=== PATIENT | male | born 1955 | race Caucasian/White ===

== ENCOUNTER 2017-07-06 03:05 | Inpatient (IN) ==
[2017-07-06] MEDS ORDERED: NORMAL SALINE 10 ML SYRINGE FLUSH IVP PRN ×4 (03:14→06:55)
[2017-07-06] MEDS ORDERED: Lactated Ringers 1,000 ML PRIMARY IV SCH ×2 (03:15→05:45)
[2017-07-06] MEDS ORDERED: HYDROmorphone 2 MG/1 ML IVP ONE (03:17)
[2017-07-06 03:21] LABS: BASOPHILS # (AUTO) 0.01 10*3/UL; BASOPHILS % (AUTO) 0.1 % (0-1); BLOOD UREA NITROGEN 9 mg/dL (7-22); EOSINOPHILS # (AUTO) 0 10*3/UL; EOSINOPHILS % (AUTO) 0 % (0-8); Hematocrit [HCT] 40.3 % (42.0-52.0); Hemoglobin [HGB] 13.3 g/dL (14.0-18.0); LYMPHOCYTES # (AUTO) 0.56 10*3/uL; MEAN CORPUSCULAR HEMOGLOBIN 28.3 PG (27-31); MEAN CORPUSCULAR VOLUME 85.7 FL (80-90); MEAN PLATELET VOLUME 9.7 FL (7.4-12.2); MONOCYTES # (AUTO) 0.89 10*3/UL (0.3-0.8); MONOCYTES % (AUTO) 8.4 % (5-15); NEUTROPHILS # (AUTO) 9.06 10*3/UL; NEUTROPHILS % (AUTO) 85.9 % (50-80); PLATELET MORPHOLOGY COMMENT NORMAL MORPHOLOGY (NORM); RBC MORPHOLOGY COMMENT NORMAL MORPHOLOGY (NORM); WBC MORPHOLOGY COMMENT NORMAL MORPHOLOGY (NORM)
--- NOTE | 2017-07-06 03:22 | PDOC ---
HPI - History of Present Illness Date of Service: 07/06/17 Time of Service: 03:00 Chief Complaint: Abdominal pain History of Present Illness: This is 61-year-old male who comes in with a one-day history of abdominal pain. He states he woke up roughly around 6 AM on 07/05/2017 with abdominal pain. Because of the pain the patient went to the emergency department at [facility] at [facility] [place]. Patient rates pain as 10 out of 10. He's never had pain like this before. Patient because of the shoulder problem has been taken hydrocodone/Tylenol plus ibuprofen. He is on antibiotics for tooth infection. He states and sees had gastric bypass surgery has now obstruction is been having a lot of problems with his his teeth. Patient's white count at 1758 on 07/05/2017 was 6.3 hemoglobin 15.8 hematocrit 46.7. Lipase was 26 AST is 28 ALT 44 post a 72 sodium 135 potassium 3.3 chloride 103 glucose 153 BUN 8 creatinine 0.5. Patient had an abdominal x-ray that showed free air under the diaphragm. Patient had a CT scan which was read as having free air under the diaphragm. Fluid in the right and left colic gutters and around the liver. Patient has had gastric bypass surgery. Past Medical History Medical History: Diabetes insulin-dependent. History of tooth infection. History of toe infection. History of MRSA. Hypothyroidism, anxiety disorder Surgical History: Gastric bypass surgery. Cholecystectomy. Lyses of adhesions Pertinent Family History: Patient has history of medical problems Medication / Allergies Home Medications: Home Medications 3 Medication Instructions Recorded Confirmed Type Cyclobenzaprine HCl 10 mg PO BID 07/06/17 07/06/17 History Dextroamphetamine Sulfate 10 mg PO BID 07/06/17 07/06/17 History [Dexedrine] Gabapentin 300 mg PO TID 07/06/17 07/06/17 History Hydrocodone/Acetaminophen 1 each PO Q4H PRN 07/06/17 07/06/17 History [Hydrocodon-Acetaminophen 5-325] Insulin Aspart [Novolog Flexpen] 3 ml SUBCUT TID MEALS 07/06/17 07/06/17 History Levothyroxine Sodium [Synthroid] 75 mcg PO DAILY 07/06/17 07/06/17 History Sulfameth/Trimeth 800/160 Tab 1 each PO BID 07/06/17 07/06/17 History [Bactrim DS 800/160 Tab] Allergies/Adverse Reactions: Allergies 3 Allergy/AdvReac Type Severity Reaction Status Date / Time atorvastatin [From Lipitor] AdvReac NOT Verified 07/06/17 03:25 APPLICABLE lisinopril AdvReac NOT Verified 07/06/17 03:26 APPLICABLE metformin AdvReac NAUSEA Verified 07/06/17 03:26 Review of Systems - Constitutional Constitutional: REPORTS: Negative System Review, General Health Good - Integumentary Integumentary: REPORTS: Negative System Review - Eye Exam Eye Exam: REPORTS: Negative System Review - Ear/Nose Exam Ear/Nose Exam: REPORTS: Negative System Review - Mouth/Throat Mouth/Throat Exam: REPORTS: Negative System Review - Respiratory Respiratory: REPORTS: Negative System Review - Cardiovascular Cardiovascular: REPORTS: Negative System Review - Gastrointestinal Gastrointestinal / Abdominal: REPORTS: Negative System Review - Genitourinary Genitourinary: REPORTS: Negative System Review - Musculoskeletal Musculoskeletal: REPORTS: Joint Pain - Shoulders - Hematlogic / Lymphatic Hematologic / Lymphatic: REPORTS: Negative System Review - Neurological Neurologic: REPORTS: Negative System Review - Psychiatric Psychiatric: REPORTS: Anxiety Exam - General General Appearance: Cooperative, Severe Distress - Head Head Exam: Normal Inspection - Eye Eye Exam: POSITIVE: PERRL, EOMI - Neck Neck Exam: Full ROM, No Tenderness - Respiratory Respiratory Exam: POSITIVE: Clear to Auscultation - Bilaterally, Breathing Non Labored, Normal To Percussion - Cardiovascular Cardiovascular Exam: POSITIVE: RRR, No Murmur - GI/Abdominal GI/Abdominal Exam: POSITIVE: Soft, No Hepatomegaly, No Splenomegaly (Tender in the midepigastric region but no rebound tenderness) - Rectal Rectal Exam: POSITIVE: Deferred - External Exam: POSITIVE: Deferred - Extremities Extremities Exam: POSITIVE: Full ROM, Normal Capillary Refill, No Clubbing Present, No Edema Present - Neurological Neurological Exam: POSITIVE: Oriented x 3, Reflexes Normal, CN II-XII Intact - Psychiatric Psychiatric Exam: POSITIVE: Normal Affect - Integumentary Integumentary Exam: POSITIVE: Normal Color, Warm Assessment and Plan - Patient Problems (1) Perforated viscus Current Visit: Yes Status: Acute Code(s): R19.8 - Other specified symptoms and signs involving the digestive system and abdomen - Assessment / Plan Additional Assessment/Plan Details: The patient has severe abdominal pain and a perforated viscus I do not think that he is a candidate for nonoperative management. He'll need to go for exploratory laparotomy and repair of perforated viscus bile. Most likely this is a perforated duodenal or prepyloric ulcer. This may also be a marginal ulcer that is perforated. We cannot rule out that it's a perforated colon. He understands the risk and benefits of surgery. He has consented to surgery. He understands potential complications including a colostomy. Patient was started on antibiotics Rocephin and Flagyl prior to transfer. Given IV fluids and taken surgery as soon as possible.
[2017-07-06] MEDS ORDERED: KETAMINE HCL 100 MG/ML SYRINGE ONE (03:28)
[2017-07-06] MEDS ORDERED: LIDOCAINE MPF 2% - 5 ML (20 MG/1 ML) ONE (03:29)
[2017-07-06] MEDS ORDERED: MIDAZOLAM 5 MG/1 ML ONE (03:29)
[2017-07-06] MEDS ORDERED: fentaNYL Inj 250 MCG/5 ML VIAL ONE (03:29)
[2017-07-06] MEDS ORDERED: PROPOFOL 10 MG/1 ML (200 MG/20 ML) VIAL IV ONE (03:29)
[2017-07-06] MEDS ORDERED: VECURONIUM BROMIDE 10 MG VIAL ONE (03:29)
[2017-07-06] MEDS ORDERED: Sodium Chloride 0.9% vial 10 ML ONE (03:29)
[2017-07-06] MEDS ORDERED: Mupirocin Nasal Oint 2% 1 gm Tube ONE ×2 (03:33)
[2017-07-06] MEDS ORDERED: metroNIDAZOLE 500mg (Premix) 500 MG/100 ML BAG IV ONE (03:46)
[2017-07-06] MEDS ORDERED: BUPivacaine Liposome/PF (Exparel) Inj 20ml vial INFIL ONE (04:36)
[2017-07-06] MEDS ORDERED: Sodium Chloride 0.9% vial 40 ML ONE (04:36)
[2017-07-06] MEDS ORDERED: GLYCOPYRROLATE 0.2 MG/1 ML VIAL ONE (05:03)
[2017-07-06] MEDS ORDERED: NEOSTIGMINE 1 MG/1 ML - 10 ML ONE (05:03)
[2017-07-06] MEDS ORDERED: ONDANSETRON 4 MG/2 ML VIAL IVP PRN ×2 (05:17→06:55)
[2017-07-06] MEDS ORDERED: HYDROmorphone 2 MG/1 ML IVP PRN ×3 (05:17→10:20)
[2017-07-06] MEDS ORDERED: Acetaminophen 1000mg Inj 1,000 MG/100 ML VIAL IV PRN ×2 (05:17→06:55)
--- NOTE | 2017-07-06 05:18 | GEN.OPNOTE ---
Operative Note Surgery Date: 07/06/17 Preoperative Diagnosis: Perforated viscus Postoperative Diagnosis: Perforated marginal ulcer Procedure: Oversewing ulcer and Bijan patch Surgeon: Monty Mcelroy MD Anesthesia Provider: Karina Harrell CRNA Anesthesia Type: General Estimated Blood Loss (mL): 25 Fluids: Lactated Ringer's 1500 mL. Patient was redosed with Flagyl Pathology: Nothing sent Indications: This is a 61-year-old gentleman who woke up at 6 AM with excruciating abdominal pain on 10/05/2017. At the time of surgery is approximate 20 hours out from his perforation. X-ray showed that he had free air. Patient has a history of a gastric bypass surgery Findings: Patient had a perforation of a marginal ulcer. This is as gastrojejunal anastomosis Complications: None Operative Summary: Patient is brought in operative room. Placed supine position. Given general tracheal anesthesia. Was prepped draped sterile fashion. Timeout performed per protocols. I then made a skin incision through the previous upper abdominal skin incision. Hemostased and left cautery and dissection to Uriel Ks tissue electrocautery patient had a hernia sac was completely dissected free from the subcutaneous tissue. I then opened up the hernia sac revealing that he had some fibrous exudate in the hernia sac but no bowel. I then excised the hernia sac. I opened up the abdominal cavity from the xiphoid to the umbilicus. An Rich retractor was then placed. Patient had conative whitish bethea of fluids from up around the liver and in the left upper quadrant. I then inspected the gastric antrum and the prepyloric area in the duodenum. There is no perforation noted this point. Ms. sheridan inflammatory change seen in the Radha- en-Y limb. A pelvis up to a point found a small pin-sized hole at the anastomosis. This is just on the anterior wall. This will that since he perforation most likely occurred close to 20 hours prior in the amount of contamination revision of the Radha-en-Y limb would not be appropriate at this time. Using 3-0 Vicryl suture I then closed the marginal ulcer. I then cut a piece of omentum free to make a tongue of omentum to place over top to do a Bijan patch. This was sewn in place with a 3-0 Vicryl pop-off sutures. I then irrigated until clear. Make sure that had copious amounts of irrigation up around the splenic area and above the liver. I then irrigated out the gutters of the colon and the pelvis. There is adequate hemostasis noted pathology was found. I then closed the midline incision using 0 Prolene continuous running suture starting at the xiphoid process work just below the hernia defect inserted the umbilicus worked up to the hernia defect. I then infiltrated 20 mL of Exoprel dilated out to 60 mL and injected this into the subcutaneous tissue for postoperative pain control. Skin reapproximated using skin gucci. All retractors were removed of prior to closing the abdomen. Counts were correct. Patient transferred recovery room in stable condition. Patient Problems - Patient Problem List (1) Perforated viscus Current Visit: Yes Status: Acute Code(s): R19.8 - Other specified symptoms and signs involving the digestive system and abdomen Category: Medical Procedure Codes - Surgical Procedures Primary Surgical Procedure: 61183 : Gastrorrhaphy
[2017-07-06] MEDS ORDERED: metroNIDAZOLE 500mg (Premix) 500 MG/100 ML BAG IV SCH ×2 (05:30→11:30)
[2017-07-06] MEDS ORDERED: Ondansetron ODT Tab 8 MG TAB PO PRN (05:36)
[2017-07-06] MEDS ORDERED: ATROPINE SULFATE 0.4 MG/1 ML VIAL IVP PRN (05:36)
[2017-07-06] MEDS ORDERED: Prochlorperazine Edisylate Inj 10mg/2ml vial IVP PRN (05:36)
[2017-07-06] MEDS ORDERED: LIDOCAINE W/ SODIUM BICARB 0.5 ML SYR SUBD PRN (05:36)
[2017-07-06] MEDS ORDERED: fentaNYL Inj 100 MCG/2 ML VIAL IVP PRN (05:36)
--- NOTE | 2017-07-06 05:39 | CRNA.PROGR ---
Anesthesia Time - - Start date: 07/06/17 End date: 07/06/17 - Procedure/Recovery Time Anesthesia : Time In: 03:53 Anesthesia : Time Out: 05:25 Anesthesia : Total Time: 92 - Total Anesthesia Time Total Anesthesia Time (minutes): 92 - Other Physical Status: P2 (type 2 dm, Perforated Viscous) Anesthesia Type: General Anesthesia : ET
--- NOTE | 2017-07-06 05:40 | CRNA.PROGR ---
Anesthesia Recovery Phase I - Post Anesthesia Evaluation Patient's Condition on Arrival in Phase I: Stable Patient's Condition on Arrival in Phase II: Stable Pain Level: 2 (medicated for pain. His big complaint is he's thirsty.)
[2017-07-06] MEDS ORDERED: cefTRIAXone Inj 1 GM in Sodium Chloride 0.9% 100 ML IV SCH ×2 (07:00→11:30)
[2017-07-06 07:22] LABS: BASOPHILS # (AUTO) 0.01 10*3/UL; BASOPHILS % (AUTO) 0.1 % (0-1); EOSINOPHILS # (AUTO) 0.01 10*3/UL; EOSINOPHILS % (AUTO) 0.1 % (0-8); Hematocrit [HCT] 35.9 % (42.0-52.0); Hemoglobin [HGB] 11.9 g/dL (14.0-18.0); LYMPHOCYTES # (AUTO) 0.58 10*3/uL; MEAN CORPUSCULAR HEMOGLOBIN 28.5 PG (27-31); MEAN CORPUSCULAR HGB CONC 33.1 g/dL (33-37); MEAN CORPUSCULAR VOLUME 86.1 FL (80-90); MEAN PLATELET VOLUME 9.4 FL (7.4-12.2); MONOCYTES # (AUTO) 0.81 10*3/UL (0.3-0.8); MONOCYTES % (AUTO) 8.2 % (5-15); NEUTROPHILS # (AUTO) 8.43 10*3/UL; NEUTROPHILS % (AUTO) 85.3 % (50-80); RED BLOOD COUNT 4.17 10^6/uL (4.70-6.10)
[2017-07-06 07:32] LABS: BLOOD UREA NITROGEN 8 mg/dL (7-22); PLATELET MORPHOLOGY COMMENT NORMAL MORPHOLOGY (NORM); RBC MORPHOLOGY COMMENT NORMAL MORPHOLOGY (NORM); WBC MORPHOLOGY COMMENT NORMAL MORPHOLOGY (NORM)
[2017-07-06] MEDS ORDERED: Pantoprazole Inj 40 MG in Normal Saline Flush 10 ML IVP SCH (09:00)
[2017-07-06] MEDS: Pantoprazole Inj 40 MG in Normal Saline Flush 10 ML IVP SCH (09:45)
[2017-07-06] MEDS: Sodium Chloride 0.9% 1,000 ML PRIMARY IV SCH ×2 (09:46→20:31)
[2017-07-06] MEDS: Insulin Lispro Flexpen 300 UNIT/3 ML INSULN.PEN SUBCUT SCH ×4 (09:49→20:34)
[2017-07-06] MEDS ORDERED: HYDROmorphone 2 MG/1 ML ONE (10:15)
[2017-07-06] MEDS ORDERED: NALOXONE 0.4 MG/1 ML VIAL IVP PRN (10:59)
[2017-07-06] MEDS ORDERED: Sodium Chloride 0.9% 250 ML IV PRN (11:39)
--- NOTE | 2017-07-06 12:00 | CRNA.PROGR ---
Anesthesia Note - Progress Notes Anesthesia Progress Note: In bed complaining bitterly in this order, Thirst, then pain. No nausea. States he'll ambulate if assisted. Encouraged that. States he has peripheral neuropathy that makes him prone to being unstable on his feet. He appears to be doing well. Will need watching to make sure NG tube stays. He's already got harris out Laboratory Results 07/06/17 07/06/17 07/06/17 Range/Units 02:55 02:55 07:18 WBC 10.55 9.88 (4.8-10.8) 10^3/uL RBC 4.70 4.17 L (4.70-6.10) 10^6/uL Hgb 13.3 L 11.9 L (14.0-18.0) g/dL Hct 40.3 L 35.9 L (42.0-52.0) % MCV 85.7 86.1 (80-90) FL MCH 28.3 28.5 (27-31) PG MCHC 33.0 33.1 (33-37) g/dL RDW Std Deviation 49.4 49.3 (39-50) fL RDW Coeff of Aidan 15.9 H 15.9 H (11.5-14.5) % Plt Count 402 H 351 H (140-350) 10*3/uL MPV 9.7 9.4 (7.4-12.2) FL Immature Gran % (Auto) 0.3 0.4 (0-5) % Neut % (Auto) 85.9 H 85.3 H (50-80) % Lymph % (Auto) 5.3 L 5.9 L (10-50) % [place] % (Auto) 8.4 8.2 (5-15) % Eos % (Auto) 0 0.1 (0-8) % Baso % (Auto) 0.1 0.1 (0-1) % Immature Gran # (Auto) 0.03 0.04 10*3/UL Neut # (Auto) 9.06 8.43 10*3/UL Lymph # (Auto) 0.56 0.58 10*3/uL [place] # (Auto) 0.89 H 0.81 H (0.3-0.8) 10*3/UL Eos # (Auto) 0 0.01 10*3/UL Baso # (Auto) 0.01 0.01 10*3/UL WBC Morphology Comment Normal morphology Normal morphology (NORM) Plt Morphology Comment Normal morphology Normal morphology (NORM) RBC Morph Comment Normal morphology Normal morphology (NORM) Sodium 140 (135-145) meq/L Potassium 3.6 L (3.8-5.2) meq/L Chloride 106 (98-112) meq/L Carbon Dioxide 24 (23-33) meq/L Anion Gap 10 (5-20) BUN 9 (7-22) mg/dL Creatinine 0.6 L (0.70-1.50) mg/dL Estimated GFR > 60 (>60 ml/min/1.73m(2)) BUN/Creatinine Ratio 15.00 (6-20) Glucose 143 H (78-110) mg/dL Calculated Osmolality 290.0 (267-292) mOsm/kg Calcium 8.1 L (8.7-10.7) mg/dL Magnesium (1.6-2.4) mg/dL 07/06/17 07/06/17 Range/Units 07:18 07:30 WBC (4.8-10.8) 10^3/uL RBC (4.70-6.10) 10^6/uL Hgb (14.0-18.0) g/dL Hct (42.0-52.0) % MCV (80-90) FL MCH (27-31) PG MCHC (33-37) g/dL RDW Std Deviation (39-50) fL RDW Coeff of Aidan (11.5-14.5) % Plt Count (140-350) 10*3/uL MPV (7.4-12.2) FL Immature Gran % (Auto) (0-5) % Neut % (Auto) (50-80) % Lymph % (Auto) (10-50) % [place] % (Auto) (5-15) % Eos % (Auto) (0-8) % Baso % (Auto) (0-1) % Immature Gran # (Auto) 10*3/UL Neut # (Auto) 10*3/UL Lymph # (Auto) 10*3/uL [place] # (Auto) (0.3-0.8) 10*3/UL Eos # (Auto) 10*3/UL Baso # (Auto) 10*3/UL WBC Morphology Comment (NORM) Plt Morphology Comment (NORM) RBC Morph Comment (NORM) Sodium 140 (135-145) meq/L Potassium 3.5 L (3.8-5.2) meq/L Chloride 108 (98-112) meq/L Carbon Dioxide 23 (23-33) meq/L Anion Gap 9 (5-20) BUN 8 (7-22) mg/dL Creatinine 0.5 L (0.70-1.50) mg/dL Estimated GFR > 60 (>60 ml/min/1.73m(2)) BUN/Creatinine Ratio 16.00 (6-20) Glucose 158 H (78-110) mg/dL Calculated Osmolality 290.0 (267-292) mOsm/kg Calcium 7.6 L (8.7-10.7) mg/dL Magnesium 2.3 (1.6-2.4) mg/dL Vital Signs - Last Taken Temperature 98.2 F 07/06/17 11:29 Pulse Rate 68 07/06/17 11:29 Respiratory Rate 16 07/06/17 11:29 Blood Pressure 109/46 07/06/17 11:29 Pulse Ox 96 07/06/17 11:29 Spo2 is on room air. No apparent anesthetic difficulties.
[2017-07-06] MEDS ORDERED: Glucagon Inj Vial 1 MG/ML VIAL IM PRN (12:17)
[2017-07-06] MEDS ORDERED: DEXTROSE 31 GM GEL PO PRN (12:17)
[2017-07-06] MEDS ORDERED: Insulin Sliding Scale Protocol SUBCUT PRN (12:17)
[2017-07-06] MEDS ORDERED: DEXTROSE 50%-WATER SYRINGE 50 ML SYRINGE IVP PRN (12:17)
[2017-07-06] MEDS: MORPHINE SULFATE/PF PCA 30 MG/30 ML IV SCH ×2 (12:20→19:50)
--- NOTE | 2017-07-06 12:27 | CONSULT ---
Consult Note - Consult Reason for Consult: PostOp Consulation : General Surgery Requesting Physician: alec Primary Care Provider: NONE NONE - History of Present Illness History of Present Illness: Is a very nice 61-year-old gentleman [facility] patient hospitalist service was consulted by Dr. nayla Garcia for diabetes management. He comes into the hospital with the abdominal pain which started around the 6:54 AM on 322 went to the emergency department at the [facility] and [facility] he does have shoulder arthritis which he was taking hydrocodone and ibuprofen for he also is on antibiotics for apparently his toe ulcer which is managed by Dr. Granado i.e. at the [facility] which I called left message but I was not able to get through him phone number is [phone] his is a poor historian as well as the patient and they don't know why he is on Bactrim and how long he should be on nevertheless he is not able take by mouth now because of his surgery and he is on IV Flagyl and ceftriaxone. He's also had gastric bypass surgery on x- ray it showed free air under the diaphragm and also an ulcer at the anastomosis according to Dr. nayla Garcia he is status post repair. He is laying in bed now feels much better than yesterday he states Past Medical History Medical History: Diabetes insulin-dependent. History of tooth infection. History of toe infection. History of MRSA. Hypothyroidism, anxiety disorder Surgical History: Gastric bypass surgery. Cholecystectomy. Lyses of adhesions Pertinent Family History: Patient has history of medical problems Tobacco Use: Current Every Day Smoker Do you dip or chew tobacco: No In the Past 12 Months, Have Used or Abuse Any of the Following Substance: Non Opiate Pain Medication, Opiate Pain Medication Review of Systems - Review of Systems All Systems: Reviewed & No Additional Complaints Except as Stated - Respiratory Respiratory: DENIES: Negative System Review, Cough, Sputum, Dyspnea At Rest, Dyspnea with Exertion, Pleuritic Pain, Hemoptysis, Wheezing, Other, See HPI - Cardiovascular Cardiovascular: DENIES: Negative System Review, Chest Pain, Edema, Syncope, Palpitations, Orthopnea, Paroxysmal Nocturnal Dyspnea, Other, See HPI - Genitourinary Genitourinary: DENIES: Negative System Review, Pain, Burning, Hematuria, Incontinence, Urgency, Hesitant Stream, Decreased Stream, Nocutria, Discharge, Sexual Dysfunction, Other, See HPI Medication / Allergies Home Medications: Home Medications 3 Medication Instructions Recorded Confirmed Type Cyclobenzaprine HCl 10 mg PO BID 07/06/17 07/06/17 History Dextroamphetamine Sulfate 10 mg PO BID 07/06/17 07/06/17 History [Dexedrine] Gabapentin 300 mg PO TID 07/06/17 07/06/17 History Hydrocodone/Acetaminophen 1 ea PO Q4H PRN 07/06/17 07/06/17 History [Hydrocodon-Acetaminophen 5-325] Insulin Aspart [Novolog Flexpen] 3 ml SUBCUT TID MEALS 07/06/17 07/06/17 History Levothyroxine Sodium [Synthroid] 75 mcg PO DAILY 07/06/17 07/06/17 History Sulfameth/Trimeth 800/160 Tab 1 ea PO BID 07/06/17 07/06/17 History [Bactrim DS 800/160 Tab] Allergies/Adverse Reactions: Allergies 3 Allergy/AdvReac Type Severity Reaction Status Date / Time atorvastatin [From Lipitor] AdvReac NOT Verified 07/06/17 03:25 APPLICABLE lisinopril AdvReac NOT Verified 07/06/17 03:26 APPLICABLE metformin AdvReac NAUSEA Verified 07/06/17 03:26 Exam - Vitals Vital Signs: Vital Signs Temperature 98.2 F Temperature Source Temporal Artery Scan Pulse Rate [Pulse Oximeter] 68 Pulse Rate 60 Respiratory Rate 16 Blood Pressure [Left Arm] 109/46 Blood Pressure 125/50 Pulse Ox 96 Oxygen Flow Rate 2 Oxygen Delivery Method Room Air Height 5 ft 8 in Weight 166 lb 4.8 oz - General General Appearance: No Acute Distress, Cooperative - Head Head Exam: Normal Inspection, Normocephalic, Atraumatic - Eye Eye Exam: POSITIVE: Normal Appearance, PERRL, EOMI, No Scleral Icterus - Respiratory Respiratory Exam: POSITIVE: Clear to Auscultation - Bilaterally, Breathing Non Labored, Normal To Percussion, Normal to Percussion and Palpation - Cardiovascular Cardiovascular Exam: POSITIVE: RRR, No Murmur, No Clicks, No Gallops, No Rubs, PMI Non-Displaced - GI/Abdominal GI/Abdominal Exam: POSITIVE: Normal Bowel Sounds, Non Tender, Non Distended, Soft, No Masses, No Hepatomegaly, No Splenomegaly, No Organomegaly - Extremities Additional Extremities Exam Details: Multiple Band-Aids on the big toe and other toes of his foot both feet Results - Labs CBC and BMP: 07/06/17 07:18 07/06/17 07:18 Assessment and Plan - Patient Problems (1) Perforated viscus Current Visit: Yes Status: Acute Code(s): R19.8 - Other specified symptoms and signs involving the digestive system and abdomen (2) Diabetes 1.5, managed as type 2 Current Visit: Yes Status: Acute Code(s): E10.9 - Type 1 diabetes mellitus without complications - Assessment / Plan Additional Assessment/Plan Details: #1 perforated viscusstatus post surgery deferred to Dr. nayla Garcia for diet antibiotics and anticoagulation for DVT prophylaxis he would like his heparin subcutaneous held for 24 hours since the patient was on many ibuprofens daily I discussed the case with nursing and Dr. nayla Garcia #2 diabetes check hemoglobin A1c we'll start sliding scale #3 multiple foot ulcers consult PT wound care I will also put in a call at the [facility] in [place] to speak to Dr. Granado to find out the status of his Bactrim which is on hold at present time
[2017-07-06 12:34] LABS: HEMOGLOBIN A1C 5.85 % (4.2-6.0)
[2017-07-06] MEDS: GABAPENTIN 300 MG CAPSULE PO SCH (17:28)
[2017-07-06] MEDS ORDERED: SULFAMETHOXAZOLE/TRIMETHOPRIM 800/160 MG TABLET PO SCH (21:00)
[2017-07-06] MEDS ORDERED: CYCLOBENZAPRINE 10 MG TABLET PO SCH (21:00)
[2017-07-06] MEDS ORDERED: DEXTROAMPHETAMINE SULFATE 10 MG PO SCH (21:00)
[2017-07-07] MEDS: Sodium Chloride 0.9% 1,000 ML PRIMARY IV SCH ×2 (04:19→09:02)
[2017-07-07] MEDS: LEVOTHYROXINE 75 MCG TABLET PO SCH (04:58)
[2017-07-07 05:28] LABS: BASOPHILS # (AUTO) 0.02 10*3/UL; BASOPHILS % (AUTO) 0.2 % (0-1); BLOOD UREA NITROGEN 11 mg/dL (7-22); BUN/CREATININE RATIO 18.33 (6-20); EOSINOPHILS # (AUTO) 0.04 10*3/UL; EOSINOPHILS % (AUTO) 0.4 % (0-8); Hematocrit [HCT] 33.7 % (42.0-52.0); Hemoglobin [HGB] 10.7 g/dL (14.0-18.0); LYMPHOCYTES # (AUTO) 1.04 10*3/uL; MEAN CORPUSCULAR HEMOGLOBIN 28.3 PG (27-31); MEAN CORPUSCULAR HGB CONC 31.8 g/dL (33-37); MEAN CORPUSCULAR VOLUME 89.2 FL (80-90); MEAN PLATELET VOLUME 10.2 FL (7.4-12.2); MONOCYTES # (AUTO) 1.04 10*3/UL (0.3-0.8); MONOCYTES % (AUTO) 11.7 % (5-15); NEUTROPHILS # (AUTO) 6.76 10*3/UL; NEUTROPHILS % (AUTO) 75.9 % (50-80); RED BLOOD COUNT 3.78 10^6/uL (4.70-6.10); SERUM ALBUMIN 2.5 g/dL (3.5-4.8)
[2017-07-07 05:31] LABS: PLATELET MORPHOLOGY COMMENT NORMAL MORPHOLOGY (NORM); RBC MORPHOLOGY COMMENT NORMAL MORPHOLOGY (NORM); WBC MORPHOLOGY COMMENT NORMAL MORPHOLOGY (NORM)
[2017-07-07] MEDS: Insulin Lispro Flexpen 300 UNIT/3 ML INSULN.PEN SUBCUT SCH ×4 (07:20→20:39)
[2017-07-07] MEDS: Pantoprazole Inj 40 MG in Normal Saline Flush 10 ML IVP SCH (09:00)
[2017-07-07] MEDS ORDERED: Sodium Chloride 0.9% vial 30 ML ONE ×2 (09:21→18:07)
[2017-07-07] MEDS: MORPHINE SULFATE/PF PCA 30 MG/30 ML IV SCH ×2 (10:00→20:25)
--- NOTE | 2017-07-07 10:49 | PDOC(PROG) ---
Subjective Post Op Day: postop day 1 Pain Management: Peripheral PRACTICE MANAGERS Zurita Catheter: No Flatus: No Diet: NPO Ambulating: Yes Date and Time of Service: 07/07/2017 at 1045 Interval History: Patient states that his pain is a lot better than was prior to. He is not passing flatus. Patient is refusing get up and out of bed and ambulate. Patient also refusing his pneumatic pressure stockings. I asked him about not ambulating, he states the reason he is not is cause of his peripheral neuropathy. Objective : Data - Labs CBC and BMP: 07/07/17 04:20 07/07/17 04:20 - Vital Signs Vital Signs and I&O: Vital Signs - Last Taken Temperature 97.8 F 07/07/17 07:15 Pulse Rate 85 07/07/17 07:15 Respiratory Rate 16 07/07/17 07:15 Blood Pressure 123/70 07/07/17 07:15 Pulse Ox 96 07/07/17 07:15 Intake and Output (24hr x 4 totals) 07/05/17 07/06/17 07/07/17 07/08/17 05:59 05:59 05:59 05:59 Intake Total 1500 / 1500 3141 / 3141 Output Total 225 / 225 725 / 725 575 / 575 Balance 1275 / 1275 2416 / 2416 -575 / -575 Objective : Exam - General General Appearance: No Acute Distress - Respiratory Respiratory Exam: Clear to Auscultation - Bilaterally, Breathing Non Labored - Cardiovascular Cardiovascular Exam: RRR - GI/Abdominal GI/Abdominal Exam: Normal Bowel Sounds, Non Tender, Non Distended, Soft Assessment and Plan - Patient Problems (1) Perforated viscus Current Visit: Yes Status: Acute Code(s): R19.8 - Other specified symptoms and signs involving the digestive system and abdomen - Assessment / Plan Additional Assessment/Plan Details: At this point biggest concern is patient not ambulating. I had a long talk with him about reasons for ambulation. He understands this. He understands the risk of not ambulating. Will have physical therapy start working with him on getting some ambulation and. We'll start giving him ice chips. DC IV antibiotics.
--- NOTE | 2017-07-07 11:40 | PDOC(PROG) ---
Interval History: Patient is resting comfortably doing well feels much better than even the day before. Denies chest pain nausea vomiting would like some ice chips Objective : Data - Labs CBC and BMP: 07/07/17 04:20 07/07/17 04:20 Objective : Exam - General General Appearance: No Acute Distress, Cooperative - Respiratory Respiratory Exam: Clear to Auscultation - Bilaterally, Breathing Non Labored, Normal To Percussion, Normal to Percussion and Palpation - Cardiovascular Cardiovascular Exam: RRR, No Murmur, No Clicks, No Gallops, No Rubs, PMI Non- Displaced - GI/Abdominal GI/Abdominal Exam: Normal Bowel Sounds, Non Tender, Non Distended, Soft, No Masses, No Hepatomegaly, No Splenomegaly, No Organomegaly - Extremities Extremities Exam: No Clubbing Present, No Edema Present, No Cyanosis Present Assessment and Plan - Patient Problems (1) Perforated viscus Current Visit: Yes Status: Acute Comment: Status post surgery still continues to have NG tube deferred to Dr. nayla Garcia for management. Patient refuses to ambulate her to have pneumatic stockings he attributes it to his peripheral neuropathy but he said he will try he knows that if he does not walk the hospitalization stay could take longer could also develop blood clots which could result in he verbalizes understanding I discussed this in person with also Dr. nayla Garcia and nursing Code(s): R19.8 - Other specified symptoms and signs involving the digestive system and abdomen (2) Diabetes 1.5, managed as type 2 Current Visit: Yes Status: Acute Comment: Hemoglobin A1c is 5.5 well-controlled on sliding scale Code(s): E10.9 - Type 1 diabetes mellitus without complications
[2017-07-07] MEDS ORDERED: MORPHINE SULFATE 10 MG/1 ML ONE (18:07)
[2017-07-08 04:31] LABS: Hematocrit [HCT] 34.2 % (42.0-52.0); Hemoglobin [HGB] 10.8 g/dL (14.0-18.0); MEAN CORPUSCULAR HEMOGLOBIN 28.2 PG (27-31); MEAN CORPUSCULAR HGB CONC 31.6 g/dL (33-37); MEAN CORPUSCULAR VOLUME 89.3 FL (80-90); RED BLOOD COUNT 3.83 10^6/uL (4.70-6.10)
[2017-07-08 04:42] LABS: BLOOD UREA NITROGEN 9 mg/dL (7-22); SERUM ALBUMIN 2.7 g/dL (3.5-4.8)
[2017-07-08] MEDS ORDERED: Sodium Chloride 0.9% vial 20 ML ONE (05:33)
[2017-07-08] MEDS ORDERED: MORPHINE SULFATE 10 MG/1 ML ONE ×2 (05:33→18:03)
[2017-07-08] MEDS: MORPHINE SULFATE/PF PCA 30 MG/30 ML IV SCH ×2 (07:13→18:31)
[2017-07-08] MEDS: Insulin Lispro Flexpen 300 UNIT/3 ML INSULN.PEN SUBCUT SCH ×4 (07:17→22:11)
[2017-07-08] MEDS: Pantoprazole Inj 40 MG in Normal Saline Flush 10 ML IVP SCH (08:11)
[2017-07-08] MEDS: GABAPENTIN 300 MG CAPSULE PO SCH ×3 (08:13→22:12)
--- NOTE | 2017-07-08 10:31 | PDOC(PROG) ---
Subjective Post Op Day: postop day 2 Pain Management: Peripheral OPERATION MANAGER Zurita Catheter: No Flatus: Yes Diet: NPO Date and Time of Service: 07/08/2017 at 10:30 Interval History: Patient states that he is feeling better. He is passing flatus. Objective : Data - Labs CBC and BMP: 07/08/17 04:07 07/08/17 04:07 - Vital Signs Vital Signs and I&O: Vital Signs - Last Taken Temperature 97.8 F 07/08/17 07:16 Pulse Rate 77 07/08/17 07:16 Respiratory Rate 16 07/08/17 07:16 Blood Pressure 135/56 07/08/17 07:16 Pulse Ox 96 07/08/17 07:16 Intake and Output (24hr x 4 totals) 07/06/17 07/07/17 07/08/17 07/09/17 05:59 05:59 05:59 05:59 Intake Total 1500 / 1500 3141 / 3141 1081 / 1081 60 / 60 Output Total 225 / 225 725 / 725 1475 / 1475 Balance 1275 / 1275 2416 / 2416 -394 / -394 60 / 60 Objective : Exam - General General Appearance: No Acute Distress, Cooperative - Neck Neck Exam: Full ROM - Respiratory Respiratory Exam: Clear to Auscultation - Bilaterally, Breathing Non Labored - Cardiovascular Cardiovascular Exam: RRR - GI/Abdominal GI/Abdominal Exam: Normal Bowel Sounds, Non Tender, Non Distended, Soft Assessment and Plan - Patient Problems (1) Perforated viscus Current Visit: Yes Status: Acute Code(s): R19.8 - Other specified symptoms and signs involving the digestive system and abdomen - Assessment / Plan Additional Assessment/Plan Details: Overall patient is doing very well. We'll DC his NG tube. Okay to restart his gabapentin we'll start him on clear liquid diet.
--- NOTE | 2017-07-08 11:24 | PT.PROG ---
Progress Note Progress Note: S: Eran states that he is feeling much better today and was able to perform some walking activity with nursing staff last night. Pt agreed to participate in therapy. O: Tx consisted of: amb with SPC and CGA x 1 for safety x 300 ft. Pt's dressings were removed from his B heels and L great toe and redressed with meplix and foam bandage to cover for the B heels and bandages over the L great toe. Pt was left in his bed with alarm set. A: Pt able to tolerate increase in ambulation this session. Pt demonstrated ability to ambulate safely with SPC and recommend that pt continues to ambulate with SPC. P: Continue per POC. Wound care PRN.
--- NOTE | 2017-07-08 11:31 | PDOC(PROG) ---
Interval History: Patient looks great today he is awake alert oriented in good spirits as starting to have some clear liquids and passing gas his NG tube is out Objective : Data - Labs CBC and BMP: 07/08/17 04:07 07/08/17 04:07 Objective : Exam - General General Appearance: No Acute Distress, Cooperative - Respiratory Respiratory Exam: Clear to Auscultation - Bilaterally, Breathing Non Labored, Normal To Percussion, Normal to Percussion and Palpation - Cardiovascular Cardiovascular Exam: RRR, No Murmur, No Clicks, No Gallops, No Rubs, PMI Non- Displaced - GI/Abdominal GI/Abdominal Exam: Normal Bowel Sounds, Non Tender, Non Distended, Soft, No Masses, No Hepatomegaly, No Splenomegaly, No Organomegaly - Extremities Extremities Exam: No Clubbing Present, No Edema Present, No Cyanosis Present Assessment and Plan - Patient Problems (1) Perforated viscus Current Visit: Yes Status: Acute Comment: Continue current management as per Dr. nayla Garcia patient looks much improved his NG tube is out started on clear liquids he is passing gas Code(s): R19.8 - Other specified symptoms and signs involving the digestive system and abdomen (2) Diabetes 1.5, managed as type 2 Current Visit: Yes Status: Acute Comment: Stable hemoglobin A1c is within normal limits had some hypoglycemia but not symptomatic around in the 60s and 70s because of nothing by mouth most likely Code(s): E10.9 - Type 1 diabetes mellitus without complications (3) Hypokalemia Current Visit: Yes Status: Acute Comment: Continue IV fluids with 75 normal saline +20 of K we'll supplement with oral K as well now that he is eating hopefully he will do some physical therapy and walk around Code(s): E87.6 - Hypokalemia
[2017-07-08] MEDS: POTASSIUM CHLORIDE 20 MEQ TAB PO SCH (18:03)
[2017-07-08] MEDS ORDERED: Sodium Chloride 0.9% vial 30 ML ONE (18:06)
[2017-07-08] MEDS ORDERED: Hypromellose/Glycerin/PEG 400 Ophth Soln 15 ML DROPS EACH EYE PRN (23:51)
[2017-07-09] MEDS: LEVOTHYROXINE 75 MCG TABLET PO SCH (05:01)
[2017-07-09 05:37] LABS: BLOOD UREA NITROGEN 4 mg/dL (7-22)
[2017-07-09] MEDS ORDERED: MORPHINE SULFATE 10 MG/1 ML ONE ×2 (05:51→05:57)
[2017-07-09] MEDS: MORPHINE SULFATE/PF PCA 30 MG/30 ML IV SCH (06:17)
[2017-07-09] MEDS: Insulin Lispro Flexpen 300 UNIT/3 ML INSULN.PEN SUBCUT SCH ×2 (07:01→11:15)
[2017-07-09] MEDS: POTASSIUM CHLORIDE 20 MEQ TAB PO SCH (07:04)
[2017-07-09] MEDS ORDERED: MORPHINE SULFATE 10 MG/1 ML IV ONE (07:33)
[2017-07-09] MEDS ORDERED: PANTOPRAZOLE 40 MG TABLET PO ONE (08:57)
[2017-07-09] MEDS: GABAPENTIN 300 MG CAPSULE PO SCH ×2 (09:37→14:49)
[2017-07-09] MEDS: HYDROcodone-APAP 5 MG -325 MG TABLET PO PRN ×2 (09:37→14:49)
--- NOTE | 2017-07-09 09:38 | PTI REPORT ---
Thank you for the referral of Sabrina Farmer. He was seen on 07/06/17 for an inpatient evaluation secondary to bilateral lower extremity multiple wounds. SUBJECTIVE: The patient is a 61-year-old male. The patient reports his has been treating his open wounds and states he feels like they are doing okay. He states he has bilateral lower extremity neuropathy and has a difficult time feeling his feet but denies ever walking barefoot. PAST MEDICAL HISTORY: Past medical history can be found in the patient's medical record. OBJECTIVE FINDINGS: The patient presents with multiple bandages on bilateral lower extremities with Band-Aids placed from the patient's . These were all removed and all wound areas were cleansed with wound cleanser. The patient presents with an open wound on the right great toe, both on the dorsum and the plantar surface as well as bilateral lower extremity heels and left first and second toes. Please see the nurse's notes for pictures of all the wounds. Upon inspection, all toe wounds appear to be pressure related and heel wounds are from excessive dry skin that has cracked. There is no visible active drainage following cleansing of the areas. From the therapist's inspection, there are no visible sign of any type of infection. ASSESSMENT: Problem List: Open wounds Risk of infection Physical Therapy Goals: To be met by discharge from inpatient: Patient will promote sterile wound healing. TREATMENT PLAN: Patient will be seen on a PRN basis for wound dressings. INITIAL TREATMENT: Treatment today consisted of the initial evaluation followed by removal of old dressings and cleansing all the areas with wound cleanser and 4x4s followed by use of a 4x4 Mepilex on bilateral heels reinforced with foam dressing. Calamine lotion was used as a liquid bandage over all toe wounds followed by 1" foam tape which is able to be manipulated around the toes. Nursing was notified of treatment plan. YINKA
--- NOTE | 2017-07-09 10:39 | PTI REPORT ---
Thank you for the referral of Sabrina Farmer. He was seen on 07/07/17 for an inpatient evaluation secondary to generalized weakness. SUBJECTIVE: The patient is a 61-year-old male who presented to the hospital secondary to severe abdominal pain. The patient underwent surgery on 07/06/2017. The patient states that his pain has greatly improved in regards to his stomach pain and he states that this is his fourth surgery to his abdominal region over the last couple of years. The patient states that prior to this surgery he was living with his in [place]. He states that he has at least 12 stairs in his home with a railing on each side. He states that he was not using any type of assistive device before, but does report he does fall about one time per month secondary to his bilateral peripheral neuropathy secondary to his Diabetes. The patient states that he has a hard time sometimes knowing where his feet are at and he does not wish to get up and ambulate this morning, but the doctor would like him to get up and start moving around. The patient was evaluated yesterday by SANDY Hay for wound care for his bilateral heels and on his toes. PAST MEDICAL HISTORY: Past medical history can be found in the patient's medical record. OBJECTIVE FINDINGS: General observations: The patient was alert upon PT arrival. The patient was laying in his bed and adamantly refused to get up as he stated that he did not feel well and he struggles with standing and ambulating secondary to his peripheral neuropathy. The patient did request ice chips and per his MD order, he was allowed to have one ounce of those. When we were able to get those for the patient he was more cooperative with therapy. Bed mobility: The patient was able to independently transfer from a supine position on the bed to seated edge of bed. The patient demonstrated good seated edge of bed balance. His only complains was abdominal pain when he was seated edge of bed. The patient was able to transfer back to a supine position independently. Activities of daily living: The patient was unable to put his own socks on secondary to his incision in his abdomen. PT helped the patient don his socks. Transfers: The patient was able to perform a sit to stand transfer with contact guard assist x1. The patient demonstrated poor initial standing balance with a widened base of support. We did utilize a walker so the patient would have hand hold assist to kind of regain his balance. Once the patient was able to regain his balance, he demonstrated fair balance with a widened base of support. The patient was able to stand x2 minutes while we did adjust his lines and leads. Ambulation: The patient ambulated from his bed to the bathroom, approximately 15 feet with a standard walker. The patient performed toileting activities independently and then walked back over to the bed. The patient does have a difficult time with walker placement and due to his neuropathy he is unsteady on his feet. ASSESSMENT: Problem List: Decreased endurance/activity tolerance Poor balance Unwillingness to get up and move around due to neuropathy Short-Term Goals: To be met by discharge from inpatient: Patient will be able to ambulate at least 150 feet with appropriate assistive device and do so safely in order to return back home. Patient will be able to ascend and descend at least one flight of stairs with appropriate assistive device in order to return back home. Long-Term Goals: To be met following discharge from inpatient: Patient may be seen by outpatient physical therapy if deemed necessary upon time of discharge. TREATMENT PLAN: Patient will be seen B.I.D during the week and one time per day over the weekend as an inpatient to improve the patient's endurance and activity tolerance and to get him up and ambulating with appropriate assistive device. INITIAL TREATMENT: Treatment today consisted of the initial evaluation following by functional activity. Please see objective findings for details. The therapist did discuss with nursing staff about getting the patient up and ambulating later today. We will put his shoes on the next time he ambulates just to give him a better base of support. The patient patient is interested in utilizing a walker as he felt more safe with this. We will get him set up with an appropriate walker. The patient was left in bed with nursing staff. YINKA
[2017-07-09 10:59] VITALS: BP 126/70; RESP 17; TEMP 97.9
--- NOTE | 2017-07-09 11:57 | PT.PROG ---
Progress Note Progress Note: S. Patient stated that he is feeling much better and would like to go for a walk this morning. O. Patient ambulated 300 feet around the nurses station then was returned to his room where he was left in bed with call light. A. patient tolerated ambulation very well, he ambulates with a single point cane and required SBG assist. He has met all PT goals at this time. P. will check on wound care PRN however patient is able to ambulate with Nursing assist at this time.
[2017-07-09] MEDS ORDERED: INSULIN ASPART SUBCUT SCH (12:00)
--- NOTE | 2017-07-09 12:39 | PDOC(PROG) ---
Interval History: Patient is doing great passing gas his diet was advanced as no complaints Objective : Data - Labs CBC and BMP: 07/08/17 04:07 07/09/17 05:17 Objective : Exam - Head Head Exam: Normal Inspection, Normocephalic, Atraumatic - Respiratory Respiratory Exam: Clear to Auscultation - Bilaterally, Breathing Non Labored, Normal To Percussion, Normal to Percussion and Palpation - Cardiovascular Cardiovascular Exam: RRR, No Murmur, No Clicks, No Gallops, No Rubs, PMI Non- Displaced - GI/Abdominal GI/Abdominal Exam: Normal Bowel Sounds, Non Tender, Non Distended, Soft, No Masses, No Hepatomegaly, No Splenomegaly, No Organomegaly - Extremities Extremities Exam: No Clubbing Present, No Edema Present, No Cyanosis Present Assessment and Plan - Patient Problems (1) Perforated viscus Current Visit: Yes Status: Acute Code(s): R19.8 - Other specified symptoms and signs involving the digestive system and abdomen (2) Diabetes 1.5, managed as type 2 Current Visit: Yes Status: Acute Code(s): E10.9 - Type 1 diabetes mellitus without complications (3) Hypokalemia Current Visit: Yes Status: Acute Code(s): E87.6 - Hypokalemia - Assessment / Plan Additional Assessment/Plan Details: #1 perforated viscus status post repair doing great postop defer to general surgery which I discussed the case with today is wound looks great tolerating food passing gas. #2 in regards to his diabetes which I was consulted for his hemoglobin A1c is 5 he had some episodes of low sugars where I touch had to give him amp D50 I believe he should hold his insulin and not take anything at this point his morning sugars have been great he should discuss this with his primary care physician on July 16 at 10:30 when he has an appointment which Dr. nayla Garcia made to discuss further need for insulin therapy or maybe oral or may be nothing I also told this to the patient I will sign off this case
--- NOTE | 2017-07-09 13:28 | DCSUMMARY ---
Discharge Summary Admit Date: 07/06/17 Discharge Date: 07/09/17 Admitting Diagnosis: perforated viscus; diabetes Discharge Diagnosis: Perforated marginal ulcer. Diabetes. Peripheral neuropathy Primary Surgery and Date: 07/06/2017 oversewing of perforated ulcer with Bijan patch Hospital Course: 61-year-old gentleman comes in from being transferred from the [facility]. Patient had free air under the diaphragm be consistent with a perforated viscus. Patient re-arrived hemodynamically stable but having severe abdominal pain. 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 This is at the anastomosis between the jejunum and the stomach. Patient had oversewing ulcer with a Bijan patch. He tolerated surgery well having no problems. He was started on ice chips first postoperative day. Second postop day NG tube was removed and his placed on clear liquid diet. He tolerated the diet well without having any problems. He is to the point on the third postoperative day which is July 09 he was having no abdominal pain. He is tolerating diet. Labs remained normal. He is able to be discharged to home. He'll follow-up with his primary care provider at the [facility]. He's had the gucci removed in 10 days. He will need to have a H. pylori test at the [facility] as an outpatient. He'll be on pantoprazole 40 mg once a day. He is resume his normal medication. Is given a prescription for hydrocodone/acetaminophen 5/325 one or 2 every 4 hours as need be for pain.. These do no heavy lifting for 6-8 weeks. He is to call or return the emergency department he develops a fever above 101, or increasing abdominal pain. Exam - Vitals Vital Signs: Vital Signs Temperature 97.9 F Temperature Source Temporal Artery Scan Pulse Rate [Pulse Oximeter] 66 Pulse Rate 60 Respiratory Rate [Abdomen] 18 Respiratory Rate 17 Blood Pressure [Left Arm] 126/70 Blood Pressure 125/50 Pulse Ox 93 Oxygen Flow Rate [Abdomen] 1 Oxygen Flow Rate 2 Oxygen Delivery Method Nasal Cannula Height 5 ft 8 in Weight 152 lb 12.8 oz - General General Appearance: No Acute Distress, Cooperative - Eye Eye Exam: POSITIVE: PERRL - Neck Neck Exam: Full ROM - Respiratory Respiratory Exam: POSITIVE: Clear to Auscultation - Bilaterally, Breathing Non Labored, Normal To Percussion - Cardiovascular Cardiovascular Exam: POSITIVE: RRR - GI/Abdominal GI/Abdominal Exam: POSITIVE: Normal Bowel Sounds, Non Tender, Non Distended, Soft Data Peritnent Studies: 07/06/17 07/06/17 07/06/17 02:55 02:55 07:18 WBC 10.55 9.88 Hgb 13.3 L 11.9 L Hct 40.3 L 35.9 L Sodium 140 Potassium 3.6 L Chloride Carbon Dioxide 24 Anion Gap 10 BUN 9 Creatinine 0.6 L Glucose 143 H Calculated Osmolality Calcium Magnesium Total Bilirubin AST ALT Alkaline Phosphatase Total Protein Albumin Globulin Albumin/Globulin Ratio 07/06/17 07/07/17 07/08/17 07:18 04:20 04:07 WBC 9.55 Hgb 10.8 L Hct 34.2 L Sodium 140 143 Potassium 3.5 L 3.6 L Chloride 108 111 Carbon Dioxide 23 25 Anion Gap 9 7 BUN 8 Creatinine Glucose 158 H 104 Calculated Osmolality Calcium Magnesium Total Bilirubin AST ALT Alkaline Phosphatase Total Protein Albumin Globulin Albumin/Globulin Ratio 07/09/17 05:17 WBC Hgb Hct Sodium 138 Potassium 3.8 Chloride 101 Carbon Dioxide 27 Anion Gap 10 BUN 4 L Creatinine Glucose 104 Calculated Osmolality 282.0 Calcium 8.2 L Magnesium 1.9 Total Bilirubin 0.2 L AST 35 ALT 40 Alkaline Phosphatase 53 Total Protein 5.7 L Albumin 3.0 L Globulin 2.7 Albumin/Globulin Ratio 1.10 L Patient Problems - Patient Problem List (1) Perforated viscus Current Visit: Yes Status: Acute Code(s): R19.8 - Other specified symptoms and signs involving the digestive system and abdomen Category: Medical
[2017-07-09 15:10] VITALS: O2SAT 96
== END 2017-07-09 16:29 | disposition home or self-care (01) | DRG 328 ==
LOC: OPS 03:05 → MED/SURG 05:40
PROVIDERS: ADMIT Surgery; ATTEND Surgery